=== PATIENT | female | born 2000 | race Caucasian/White ===

== ENCOUNTER 2021-02-19 04:36 | Observation (INO) ==
[2021-02-19] MEDS ORDERED: ONDANSETRON 4 MG/2 ML VIAL IV STA (05:07)
[2021-02-19] MEDS ORDERED: PANTOPRAZOLE 40 MG VIAL IV STA (05:07)
[2021-02-19] MEDS ORDERED: HYDROmorphone 2 MG/1 ML VIAL IV STA (05:07)
[2021-02-19] MEDS ORDERED: SODIUM CHLORIDE 0.9% 1,000 ML IV STA (05:07)
[2021-02-19 05:25] LABS: Basophils % 0.2 % (0.0-0.8); Eosinophils % 0.3 % (0.00-10.9); Hematocrit 38.7 VOL% (35.7-47.0); Hemoglobin 12.3 GM/DL (12.0-16.0); Immature Granulocytes % 0.3 %; Immature Granulocytes Absolute 0.03 #; Lymphocytes # 1.9 10*3/uL (1.4-4.0); Lymphocytes % 22.5 % (21.3-54.2); Mean Corpuscular HGB Conc 31.8 GM/DL (32-36); Mean Corpuscular Volume 77.2 FL (87-102); Mean Platelet Volume 10.6 FL (9.6-12.0); Monocytes % 5.9 % (1.7-12.7); Neutrophils % 70.8 % (38.7-73.9); Platelet Count 278 T/CUMM (130-400); Red Blood Count 5.01 MC/CUMM (3.8-5.5); White Blood Count 8.6 T/CUMM (4-12)
[2021-02-19 05:46] LABS: Alanine Aminotransferase 25 U/L (13-56); Albumin 3.6 G/DL (3.4-5.0); Alkaline Phosphatase 104 U/L (45-117); Amylase 20 U/L (25-115); Aspartate Amino Transferase 19 U/L (0-37); Bilirubin,Total < 0.39 MG/DL (0.20-1.00); Blood Urea Nitrogen 13 MG/DL (7-18); Calcium 9.5 MG/DL (8.5-10.1); Carbon Dioxide 27 MMOL/L (21-32); Estimated Glom Filtration Rate 135 ML/MIN; Glucose 113 MG/DL (74-106); Osmolality,Calculated 277.5 MOS/KG (273-304); Potassium 3.5 MMOL/L (3.5-5.1); Sodium 139 MMOL/L (136-145); Total Protein 7.5 G/DL (6.4-8.2)
[2021-02-19] MEDS ORDERED: INDOCYANINE GREEN 25 MG VIAL IV ONE (08:30)
[2021-02-19] MEDS ORDERED: HYDROmorphone 2 MG/1 ML VIAL IV PRN ×2 (08:32→09:02)
[2021-02-19] MEDS ORDERED: ONDANSETRON 4 MG/2 ML VIAL IV PRN ×2 (08:32→09:02)
[2021-02-19] MEDS ORDERED: KETOROLAC 15 MG/1 ML VIAL IV PRN (08:32)
[2021-02-19] MEDS ORDERED: ACETAMINOPHEN 325 MG TABLET PO PRN (09:02)
[2021-02-19] MEDS ORDERED: PIPERACILLIN/TAZOBACTAM 3,375 MG in SODIUM CHLORIDE 0.9% 100 ML IV SCH (09:02)
[2021-02-19 09:07] LABS: Bacteria,Urine Moderate /HPF (Few); Bilirubin,Urine Negative (Negative); Blood, Urine Negative (Negative); Glucose,Urine (UA) Negative (Negative); Ketones,Urine Negative (Negative); Mucus,Urine Many /LPF (Occasional); Nitrite,Urine Positive (Negative); Protein,Urine Negative; RBC,Urine 6 /HPF (0-4); Squamous Epithelial Cell,Urine Few /HPF (0-10); Urine Appearance CLOUDY (Clear); Urine Color Yellow (Yellow); Urine Specific Gravity 1.023 (1.001-1.035); Urine Urobilinogen < 2.0 EU/DL (<2.0)
[2021-02-19] MEDS ORDERED: SODIUM CHLORIDE 0.9% 1,000 ML IV SCH (10:00)
[2021-02-19] MEDS ORDERED: fentaNYL 100 MCG/2 ML VIAL ONE ×2 (10:01→12:31)
[2021-02-19] MEDS ORDERED: LIDOCAINE 2% 5 ML VIAL ONE (10:01)
[2021-02-19] MEDS ORDERED: MIDAZOLAM 2 MG/2 ML VIAL ONE (10:01)
[2021-02-19] MEDS ORDERED: ROCURONIUM 50 MG/5 ML VIAL IV ONE (10:01)
[2021-02-19] MEDS ORDERED: ONDANSETRON 4 MG/2 ML VIAL ONE ×2 (10:01→12:13)
[2021-02-19] MEDS ORDERED: propofoL 200 MG/20 ML VIAL IV ONE (10:01)
[2021-02-19] MEDS ORDERED: ACETAMINOPHEN 500 MG TABLET PO ONE (10:09)
[2021-02-19] MEDS ORDERED: FAMOTIDINE 20 MG TABLET PO ONE (10:11)
[2021-02-19] MEDS ORDERED: SCOPOLAMINE 1.5 MG PATCH TRANSDERM ONE (10:12)
[2021-02-19] MEDS ORDERED: LIDOCAINE 1%/EPI INJ 20 ML VIAL ONE (11:03)
[2021-02-19] MEDS ORDERED: TISSUE ADHESIVE 1 EACH APPLICATOR TOP ONE (11:03)
[2021-02-19] MEDS ORDERED: BUPIVACAINE MPF 0.25% 30 ML VIAL ONE (11:03)
[2021-02-19] MEDS ORDERED: DEXAMETHASONE 4 MG/1 ML VIAL ONE (11:56)
[2021-02-19] MEDS ORDERED: KETOROLAC 30 MG/1 ML VIAL ONE (12:17)
[2021-02-19] MEDS ORDERED: SUGAMMADEX 200 MG/2 ML VIAL IV ONE (12:23)
[2021-02-19] MEDS ORDERED: METOCLOPRAMIDE 10 MG/2 ML VIAL ONE (12:24)
[2021-02-19] MEDS ORDERED: SEVOFLURANE 1 UNIT/15 MINUTE INH ONE (12:34)
[2021-02-19] MEDS ORDERED: MEPERIDINE 25 MG/1 ML VIAL ONE (12:53)
[2021-02-19] MEDS: MEPERIDINE 25 MG/1 ML VIAL IV PRN ×2 (12:54→13:47)
[2021-02-19] MEDS: HYDROmorphone 2 MG/1 ML VIAL IV PRN ×2 (13:35→13:40)
[2021-02-19] MEDS ORDERED: FEXOFENADINE 60 MG TABLET PO PRN (17:16)
[2021-02-20] MEDS ORDERED: PANTOPRAZOLE 40 MG VIAL IV SCH (06:30)
[2021-02-20 07:49] VITALS: BP 114/41
== END 2021-02-20 10:56 | disposition home or self-care (01) ==
LOC: N.ED 04:36 → N.EDINP 04:36 → N.5E 06:51
PROVIDERS: ADMIT Surgery; ATTEND Surgery